=== PATIENT | female | born 1950 | race Caucasian/White ===

== ENCOUNTER 2016-12-24 12:26 | Emergency (ER) | payer MEDICARE, BC ==
[2016-12-24 13:38] VITALS: BP 140/71
--- NOTE | 2016-12-24 14:53 | UC ---
Throat Pain/Nasal Luis Enrique HPI - HPI Summary HPI Summary: ear crackling and popping for several days, similar to recent ear infection. Treated with doxycycline x 10 days a few weeks ago. Had a fever a few days ago, has some headache today which is unusual for her. No cough, no vertigo. Hearing is normal. - History of Current Complaint Chief Complaint: UCEar Stated Complaint: EAR COMPLAINT Time Seen by Provider: 12/24/16 14:46 Hx Obtained From: Patient Hx Last Menstrual Period: n/a ?: No Onset/Duration: Gradual Onset, Lasting Days - 2 Severity: Moderate Cough: Nonproductive - occasional only Associated Signs & Symptoms: Positive: Negative Related History: T & A - Epiglottits Risk Factors Epiglottis Risk Factors: Negative - Allergies/Home Medications Allergies/Adverse Reactions: Allergies Allergy/AdvReac Type Severity Reaction Status Date / Time Cephalexin [From Keflex] Allergy Rash Verified 12/24/16 13:38 Sulfa Antibiotics Allergy Rash Verified 12/24/16 13:38 Home Medications: Home Medications Diphenhydramine-Acetaminophen [Tylenol Pm Extra Strength 500-25 mg] 2 tab PO QPM PRN 12/24/16 [History Confirmed 12/24/16] PMH/Surg Hx/FS Hx/Imm Hx Cardiovascular History Of: Reports: Cardiac Disorders - CAD, low HR, Hypertension - Surgical History Surgical History: Yes Surgery Procedure, Year, and Place: carpal tunnel. left knee. hysterectomy. T &A. b/l hands trigger release - Family History Known Family History: Positive: Hypertension - Social History Occupation: Retired Lives: With Family Alcohol Use: Occasionally Substance Use Type: None Smoking Status (MU): Former Smoker When Did the Patient Quit Smoking/Using Tobacco: 2009 Review of Systems Constitutional: Negative Skin: Negative Eyes: Negative ENT: Ear Ache Respiratory: Negative Cardiovascular: Negative Gastrointestinal: Negative Genitourinary: Negative Motor: Negative Neurovascular: Negative Musculoskeletal: Negative Neurological: Headache - diffuse, present today. Psychological: Negative All Other Systems Reviewed And Are Negative: Yes Physical Exam Triage Information Reviewed: Yes Appearance: Well-Appearing, No Pain Distress Vital Signs: Initial Vital Signs Temp 98.4 F 12/24/16 13:30 Pulse 48 12/24/16 13:30 Resp 20 12/24/16 13:30 BP 140/71 12/24/16 13:30 Pulse Ox 99 12/24/16 13:30 Vital Signs Reviewed: Yes Eyes: Positive: Conjunctiva Clear ENT: Positive: Pharynx normal - past tonsillectomy, Other: - right TM normal; left TM dull and retracted. No erythema Dental Exam: Normal Neck exam: Normal Neck: Positive: Supple, Nontender, No Lymphadenopathy Respiratory: Positive: Lungs clear Cardiovascular: Positive: RRR, No Murmur Bowel Sounds: Positive: Present Musculoskeletal Exam: Normal Neurological Exam: Normal Psychological Exam: Normal Throat Pain/Nasal Course/Dx - Course Course Of Treatment: nasonex spray and guaifensin, advil prn - Differential Dx/Diagnosis Differential Diagnosis/HQI/PQRI: Otitis Media, Pharyngitis, Other - serous otitis media. Provider Diagnoses: left serous otitis media Discharge - Discharge Plan Condition: Good Disposition: HOME Prescriptions: Mometasone NASAL (NF) [Nasonex (NF)] 2 spray .SEE ORDER DAILY #1 nasal.spr Patient Education Materials: Serous Otitis Media (ED) Additional Instructions: Begin use of nasonex spray, 2 sprays to both nostrils once daily to help to relieve ear pressure. This can take up to 5 to 7 days. Use guiafensin 600mg twice daily to help to drain middle ear fluid. Use advil or acetaminophen as needed for pain.
== END 2016-12-24 15:05 | disposition home or self-care (01) ==
LOC: UCCORT 12:26
DX: H65.92 Unspecified nonsuppurative otitis media, left ear (principal); Z88.1 Allergy status to other antibiotic agents; Z88.2 Allergy status to sulfonamides; I25.10 Atherosclerotic heart disease of native coronary artery without angina pectoris; Z87.891 Personal history of nicotine dependence
CPT/HCPCS: 99212; G0463